=== PATIENT | male | born 1970 | race African-American/Black ===

== ENCOUNTER 2017-02-26 16:10 | Observation (INO) ==
[2017-02-26 18:25] LABS: Basophils % 0.4 % (0.0-0.8); Eosinophils # 0.2 10*3/uL (0.0-0.87); Hematocrit 39.6 VOL% (42.0-52.0); Hemoglobin 12.9 GM/DL (14.0-18.0); Immature Granulocytes % 0.4 %; Immature Granulocytes Absolute 0.02 #; Lymphocytes # 1.8 10*3/uL (1.4-4.0); Lymphocytes % 38.5 % (21.2-54.2); Mean Corpuscular HGB Conc 32.6 GM/DL (32-36); Mean Corpuscular Hemoglobin 30 PG (27-34); Mean Corpuscular Volume 90.4 FL (87-102); Mean Platelet Volume 9.8 FL (9.6-12.0); Monocytes # 0.4 10*3/uL (0.11-0.8); Monocytes % 8.8 % (1.7-12.7); Neutrophils # 2.2 10*3/uL (1.4-7.4); Neutrophils % 47.9 % (38.7-73.9); Platelet Count 239 T/CUMM (130-400); Red Blood Count 4.38 MC/CUMM (3.8-5.5); Red Cell Distribution Width 15.2 % (9.3-17.3); White Blood Count 4.6 T/CUMM (4-12)
[2017-02-26 18:34] LABS: Partial Thromboplastin Time 31.5 SECS (0-40)
[2017-02-26 18:46] LABS: Alanine Aminotransferase 35 U/L (16-61); Albumin 3.6 G/DL (3.4-5.0); Alkaline Phosphatase 75 U/L (45-117); Aspartate Amino Transferase 10 U/L (0-37); Bilirubin,Total < 0.39 MG/DL (0.2-1.0); Blood Urea Nitrogen 11 MG/DL (7-18); Calcium 8.6 MG/DL (8.5-10.1); Glucose 73 MG/DL (74-106); Osmolality,Calculated 280.1 MOS/KG (273-304); Potassium 4.2 MMOL/L (3.5-5.1); Sodium 142 MMOL/L (136-145); Total Protein 7.6 G/DL (6.4-8.3)
[2017-02-26] MEDS ORDERED: PROMETHAZINE 25 MG TABLET PO PRN (19:06)
[2017-02-26] MEDS ORDERED: MORPHINE 10 MG/1 ML VIAL IV PRN (19:06)
[2017-02-26] MEDS ORDERED: POTASSIUM CHLORIDE 20 MEQ TABLET PO PRN ×2 (19:08)
[2017-02-26] MEDS ORDERED: ACETAMINOPHEN 325 MG TABLET PO PRN (19:09)
[2017-02-26] MEDS ORDERED: FUROSEMIDE 40 MG/4 ML VIAL IV STA (19:10)
[2017-02-26] MEDS ORDERED: FUROSEMIDE 40 MG/4 ML VIAL ONE (19:42)
[2017-02-26] MEDS ORDERED: ENOXAPARIN 40 MG/0.4 ML SYRINGE SUBCUT SCH (21:00)
[2017-02-26] MEDS ORDERED: PHENobarbital 30 MG TABLET PO SCH (21:00)
[2017-02-26] MEDS ORDERED: diphenhydrAMINE CAP 50 MG CAPSULE PO SCH (21:00)
[2017-02-26] MEDS: CARVEDILOL 3.125 MG TABLET PO SCH (22:19)
[2017-02-26] MEDS: FAMOTIDINE 20 MG TABLET PO SCH (22:19)
[2017-02-26] MEDS: AMANTADINE 100 MG CAPSULE PO SCH (22:19)
[2017-02-26] MEDS: NITROGLYCERIN 2% OINT 1 INCH/GM PACK TOP SCH (23:23)
[2017-02-27] MEDS: NITROGLYCERIN 2% OINT 1 INCH/GM PACK TOP SCH (05:09)
[2017-02-27 06:23] LABS: Risk Ratio 2.49; VLDL CHOLESTEROL 19.2 MG/DL
[2017-02-27] MEDS ORDERED: SPIRONOLACTONE 100 MG TABLET PO SCH (09:00)
[2017-02-27] MEDS ORDERED: ASPIRIN EC 325 MG TABLET PO SCH (09:00)
[2017-02-27] MEDS ORDERED: FUROSEMIDE 40 MG TABLET PO SCH (09:00)
[2017-02-27] MEDS ORDERED: PHENobarbital 30 MG TABLET PO SCH (09:00)
[2017-02-27] MEDS: AMANTADINE 100 MG CAPSULE PO SCH (10:42)
[2017-02-27] MEDS: FAMOTIDINE 20 MG TABLET PO SCH (10:42)
[2017-02-27] MEDS: CARVEDILOL 3.125 MG TABLET PO SCH (10:43)
[2017-02-27 11:39] VITALS: BP 113/62
== END 2017-02-27 12:40 ==
LOC: EDBD → EDUNIT# → N.EDINP 16:10 → N.ED 16:10 → SUATTDRO 18:53 → N.TELEN 20:19
PROVIDERS: ADMIT Internal Medicine; ATTEND Hospitalist